=== PATIENT | female | born 1940 | race Caucasian/White ===

== ENCOUNTER → 2017-09-12 10:17 | Outpatient (CLI) | payer MEDICARE, MEDICAID | END | disposition home or self-care (01) | LOC: D.CT 10:17 | DX: R10.9 Unspecified abdominal pain (principal) ==

== ENCOUNTER → 2018-05-01 14:03 | Outpatient (CLI) | payer MEDICARE, MEDICAID ==
[2018-05-01 14:48] LABS: ALBUMIN 3.7 g/dL (3.4-5.0); BILIRUBIN - DIRECT 0.1 mg/dL (0.00-0.30); BILIRUBIN - INDIRECT 0.28 mg/dL (0.00-1.00); BILIRUBIN - TOTAL 0.38 mg/dL (0.2-1.3)
[2018-05-02 15:19] LABS: HEPATITIS C ANTIBODY 0.1 S/CO RAT (0.0-0.9)
== END | disposition home or self-care (01) ==
LOC: D.NM 04-28 13:30 → D.LAB 13:15 → D.NM 14:30
PROVIDERS: Internal Medicine Gastroenterology
DX: R11.2 Nausea with vomiting, unspecified (principal); R10.9 Unspecified abdominal pain; K21.9 Gastro-esophageal reflux disease without esophagitis

== ENCOUNTER 2018-06-13 09:45 | Day surgery (SDC) | payer MEDICARE, MEDICAID ==
[~2018-06-13] VITALS: Ht 160 cm; Wt 77.3 kg
[2018-06-13 10:20] LABS: HEMATOCRIT 40.3 % (36.0-48.0); MCH 27.5 pg (26.0-34.0); MCHC 32.3 g/dL (31.0-37.0); MCV 85.2 fL (80.0-100.0); MEAN PLATELET VOLUME 10.3 fL (7.4-10.4); RBC 4.73 10x6/uL (4.00-5.40); RDW 15.1 % (11.5-14.5); WBC 6.4 10x3/uL (4.8-10.8)
[2018-06-13] MEDS ORDERED: K-TAB10 MEQ PO (11:29)
[2018-06-13] MEDS ORDERED: LEVOTHYROXINE50 MCG (11:30)
[2018-06-13] MEDS ORDERED: XANAX1 MG PO (11:30)
[2018-06-13] MEDS ORDERED: NORVASC5 MG PO (11:31)
[2018-06-13] MEDS ORDERED: AMITRIPTYLINE H50 MG (11:31)
[2018-06-13] MEDS ORDERED: HYDROCHLOROTH12.5 M1 (11:31)
[2018-06-13] MEDS ORDERED: NEXIUM40 MG (11:32)
[2018-06-13] MEDS ORDERED: PERCOCET 10-321 EAC1 PO (11:33)
[2018-06-13] MEDS ORDERED: ELIQUIS5 MG (11:34)
[2018-06-13] MEDS ORDERED: ACETAMINOPHEN500 M1 PO (11:35)
[2018-06-13] MEDS ORDERED: VITAMIN E600 UNIT PO (11:37)
[2018-06-13 12:01] VITALS: BP 131/76; Ht 160 cm; Wt 77.3 kg
--- NOTE | 2018-06-13 16:13 | NUR ---
DC INSTRUCTIONS GIVEN TO PT. STATES UNDERSTANDING. DC'D IV CATH FULLY INTACT.
--- NOTE | 2018-06-13 16:32 | NUR ---
PT LEFT UNIT VIA WC AT 1630
--- NOTE | 2018-06-14 10:07 | OP ---
PATIENT NAME: GARY PACE MEDICAL RECORD: [id number] :42 LOCATION:[facility] ADMISSION DATE: SURGEON: RAYMOND LEBRON MD DATE OF OPERATION: 06/13/2018 PROCEDURES: 1. EGD with biopsy and esophageal balloon dilatation. 2. Flexible sigmoidoscopy (attempted colonoscopy). INDICATIONS: Ms. Pace is a pleasant 78-year-old woman with a history of obstructive sleep apnea, atrial fibrillation, coronary artery disease, fibromyalgia, who has had about a 6 to 8 month history of heartburn, feeling as though food is hanging in her lower chest, abdominal bloating, early satiety. She has been taking Nexium 40 mg daily b.i.d. She had an EGD in August 2017 that showed a hiatal hernia, grade II esophagitis, gastritis (antral biopsies were negative for H. pylori and esophageal biopsies were negative for eosinophilia or GE reflux changes). She had a colonoscopy, 04/10/2007, that showed minimal nonspecific colitis and internal hemorrhoids. Biopsies showed no evidence of active colitis or proctitis. She had a CT of the abdomen and pelvis on 09/12/2017 (with contrast) that showed no acute findings in the abdomen or pelvis and a moderate amount of fecal material in the colon. She had a nuclear medicine gastric emptying scan, 05/01/2018, that showed a gastric emptying half-life of 155 minutes. Viral hepatitis A, B and C screen was negative. 05/01/2018, and her liver function tests were normal, 05/01/2018; however, her total protein was elevated at 9 (reference range 6.4-8.2) and her albumin was normal at 3.7. She presents for outpatient EGD and colonoscopy. PREMEDICATIONS: Total IV anesthesia (ASA 3), history of obstructive sleep apnea, atrial fibrillation, coronary artery disease, propofol was 420 mg. INSTRUMENT: Olympus video gastroscope and Olympus video colonoscope, pediatric. PROCEDURE AND FINDINGS: After receiving informed consent, Ms. Pace's posterior pharynx was anesthetized site Cetacaine spray. She was placed in left lateral decubitus position. Bite block was placed and she was sedated per anesthesia. After achieving an adequate level of sedation, the gastroscope was introduced per orally and advanced in the duodenum without difficulty. The esophageal mucosa was without erythema or ulcers; however, the GE junction back/lower esophageal sphincter area appeared to be "snug" and with gentle pressure from the scope the lower esophageal sphincter opened up. Moderate size hiatal hernia was present. The gastric mucosa was notable for moderate diffuse erythema involving the body and antrum of the stomach. Antral biopsies were obtained to rule out Helicobacter pylori. In the proximal body of the stomach was a 0.25 to 0.3 cm sessile polyp that was cold biopsied. The pylorus was patent and competent. Duodenal mucosa was without erythema or ulcers, appeared normal through the second portion. Biopsies were taken from the second portion of the duodenum to rule out celiac disease. The gastroscope was then withdrawn to the stomach. Esophageal balloon dilator was then introduced through the scope and the balloon was positioned midway across the distal esophagus, insufflated to a 60-Polish size, held in place on the appropriate PSI for 60 seconds, then deflated. When the balloon was withdrawn, biopsies were taken from the lower and middle thirds of the esophagus. Gastroscope was then withdrawn. She was prepared for colonoscopy. Digital rectal exam was performed that showed no external hemorrhoidal tags, fissures or fistulas, normal sphincter tone, no palpable rectal masses. Colonoscope was introduced per OPERATIVE REPORT [id number] GARY PACE rectally and advanced to the distal descending colon. In the distal descending colon, the colon had a very acute angle with "puckering" of the lumen that was unable to negotiate the acute angle. As the colonoscope was withdrawn, careful inspection was made of the bajwa of the colon. There were a few diverticula seen in the sigmoid colon. A fair prep was present. Retroflexion in the rectum showed no significant internal hemorrhoids. Ms. Pace tolerated the procedures well, no immediate complications. ASSESSMENT: 1. "Snug" lower esophageal sphincter, status post esophageal balloon dilatation. May be early achalasia. 2. Moderate size hiatal hernia. 3. Moderate gastritis. 4. Small gastric polyp. 5. Sigmoid diverticulosis coli. 6. Incomplete colonoscopy secondary to acute angle in the descending colon. 7. Abdominal bloating, early satiety with some [id number] delay in gastric emptying, suspect secondary to pain medication, which is also likely contributing to the constipation. RECOMMENDATIONS: 1. Barium enema to complete lower GI study. 2. Barium swallow. 3. Trial of Movantik 12.5 mg p.o. every morning a hour breakfast. If tolerated, may need increased dose to 25 mg. 4. Office visit in 1 month. 5. Consider repeat CT of the abdomen and pelvis if symptoms fail to improve with Movantik. TRANSINT:[id number] Voice Confirmation ID: [id number] DOCUMENT ID: [id number] RAYMOND LEBRON MD at 1007 CC: LING LOPEZ MD [id number] DICTATION DATE: 06/13/18 1518 EDGER FEEDER: 06/13/18 1749 [facility] 06/13/18 [id number] [place] [address]
== END 2018-06-13 16:30 | disposition home or self-care (01) ==
LOC: D.OPS 09:45
PROVIDERS: Anesthesiology; ATTEND Internal Medicine Gastroenterology
DX: K22.8 Other specified diseases of esophagus (principal); K44.9 Diaphragmatic hernia without obstruction or gangrene; K31.7 Polyp of stomach and duodenum; K57.30 Diverticulosis of large intestine without perforation or abscess without bleeding; K30 Functional dyspepsia; K59.00 Constipation, unspecified; K29.80 Duodenitis without bleeding; K29.50 Unspecified chronic gastritis without bleeding; K20.9 Esophagitis, unspecified; G47.33 Obstructive sleep apnea (adult) (pediatric); I48.91 Unspecified atrial fibrillation; I25.10 Atherosclerotic heart disease of native coronary artery without angina pectoris; Z01.812 Encounter for preprocedural laboratory examination

== ENCOUNTER → 2018-06-28 10:42 | Outpatient (CLI) | payer MEDICARE, MEDICAID ==
[~2018-06-28 10:42] MED LIST: ACETAMINOPHEN500 M1 PO; AMITRIPTYLINE H50 MG; ELIQUIS5 MG; HYDROCHLOROTH12.5 M1; K-TAB10 MEQ PO; LEVOTHYROXINE50 MCG; NEXIUM40 MG; NORVASC5 MG PO; PERCOCET 10-321 EAC1 PO; VITAMIN E600 UNIT PO; XANAX1 MG PO
== END | disposition home or self-care (01) ==
LOC: D.RAD 10:42
DX: R13.10 Dysphagia, unspecified (principal)

== ENCOUNTER → 2018-10-09 10:38 | Outpatient (CLI) | payer MEDICARE, MEDICAID ==
[2018-06-13 12:01] VITALS: BMI 30.1
== END | disposition home or self-care (01) ==
LOC: D.RAD 07-25 11:00
PROVIDERS: ATTEND Internal Medicine Gastroenterology
DX: Z53.9 Procedure and treatment not carried out, unspecified reason (principal)